=== PATIENT | male | born 1985 | race Caucasian/White ===

== ENCOUNTER 2025-01-23 19:03 | Emergency (ER) | payer OTHER ==
[~2025-01-23] VITALS: Ht 175.3 cm; Wt 77.1 kg
[2025-01-23 19:33] LABS: BASOPHILS ABSOLUTE AUTO 0.03 K/mm3 (0.00-0.23); BASOPHILS PERCENT AUTO 1 % (0-2); EOSINOPHILS PERCENT AUTO 3 % (0-6); Hematocrit 38.6 % (37.0-53.0); Hemoglobin 13.2 g/dL (13.5-17.5); IMMATURE GRAN ABSOLUTE AUTO 0.01 K/mm3 (0.00-0.10); IMMATURE GRAN PERCENT AUTO 0 % (0-1); LYMPHOCYTES ABSOLUTE AUTO 2.82 K/mm3 (0.84-5.20); LYMPHOCYTES PERCENT AUTO 43 % (21-46); MONOCYTES ABSOLUTE AUTO 0.43 K/mm3 (0.16-1.47); MONOCYTES PERCENT AUTO 7 % (4-13); Mean Corpuscular HGB 30.9 pg (26.0-34.0); Mean Corpuscular HGB Conc 34.2 g/dL (31.5-36.5); Mean Corpuscular Volume 90 fL (80-100); Mean Platelet Volume 9.4 fL (9.1-12.4); NEUTROPHILS ABSOLUTE AUTO 3.05 K/mm3 (1.96-9.15); NEUTROPHILS PERCENT AUTO 47 % (41-73); Platelet Count 247 K/mm3 (150-400); RDW Coefficient Variation 11.9 % (11.7-14.2); RDW Standard Deviation 39.3 fL (35.1-46.3); Red Blood Cell Count 4.27 M/mm3 (4.30-5.90); White Blood Cell Count 6.54 K/mm3 (4.00-11.30)
[2025-01-23 20:05] LABS: Albumin, Blood 4.4 g/dL (3.4-5.0); Albumin/Globulin Ratio 1.2 (0.8-1.8); Bilirubin, Total 0.4 mg/dL (0.1-1.0); Bun/Creatinine Ratio 10.9 (12.0-20.0); Calcium, Blood 9.6 mg/dL (8.5-10.1); Creatinine, Blood 1.01 mg/dL (0.60-1.20); Globulin, Blood 3.7 g/dL (2.2-4.0); Potassium, Blood 3.6 mmol/L (3.5-5.5); Total Protein, Blood 8.1 g/dL (6.4-8.2)
[2025-01-23 21:05] LABS: Source, Urine Clean Catch
[2025-01-23 21:09] LABS: Appearance, Urine Clear (Clear); Bilirubin, Urine Neg (Neg); Blood, Urine Neg (Neg); Glucose Qualitative, Urine Neg (Neg); Ketones, Urine Neg (Neg); Leukocyte Esterase, Urine Neg (Neg); Nitrite, Urine Neg (Neg); Protein, Urine Neg (Neg); Urobilinogen, Urine NORM (Normal)
[2025-01-23 21:46] LABS: Color, Urine Pale Yellow (P-Yellow)
[2025-01-23] MEDS ORDERED: IBU600 MG PO (22:24)
[2025-01-23] MEDS ORDERED: Ibuprofen 600 MG Tab PO ONE (22:25)
== END 2025-01-23 22:44 | disposition home or self-care (01) ==
LOC: ER 19:03
PROVIDERS: Student in an Organized Health Care Education/Training Program
DX: K40.90 Unilateral inguinal hernia, without obstruction or gangrene, not specified as recurrent (principal)
CPT/HCPCS: 76857; 80053; 81003; 83690; 85025; 99284-25; A9270

== ENCOUNTER 2025-02-26 22:24 | Emergency (ER) | payer OTHER ==
[~2025-02-26] VITALS: Ht 177.8 cm; Wt 74.8 kg
[~2025-02-26 22:24] MED LIST: IBU600 MG PO
[2025-02-26] MEDS ORDERED: Amoxicillin 875 MG Tab PO ONE (22:50)
[2025-02-26] MEDS ORDERED: RX Prepack 6 Tabs Oxycodone 5mg UD ONE (22:50)
[2025-02-26] MEDS ORDERED: Amoxicillin875 MG PO (22:53)
== END 2025-02-26 23:03 | disposition home or self-care (01) ==
LOC: ER 22:24
DX: K04.7 Periapical abscess without sinus (principal); Z88.5 Allergy status to narcotic agent; Z88.8 Allergy status to other drugs, medicaments and biological substances
CPT/HCPCS: 99282; A9270

== ENCOUNTER 2025-05-08 08:36 | Day surgery (SDC) | payer OTHER ==
[~2025-05-08] VITALS: Ht 175.3 cm; Wt 78.5 kg
[2025-05-08] VITALS (15 sets, daily range): BP systolic 92–137; BP diastolic 50–87
[~2025-05-08 08:36] MED LIST changes: +ALBU90OI INH; +Amoxicillin875 MG PO; +Lidocaine HCl 4% 5 ML SDA ONE; +MONT10T PO; +SYMBICORT 160-4.6 GM; +ZYRTEC10 M2 PO
[2025-05-08] MEDS ORDERED: CeFAZolin Sodium 2,000 MG in NS 100 ML IV SCH (08:40)
[2025-05-08] MEDS ORDERED: Ondansetron HCl 2 MG / ML 2ML Vial ONE (08:49)
[2025-05-08] MEDS ORDERED: Metoclopramide HCl 5MG / ML 2ML Vial ONE (08:49)
[2025-05-08] MEDS ORDERED: Rocuronium Bromide 10 MG/ML 5ML Injection IV ONE (08:49)
[2025-05-08] MEDS ORDERED: Dexamethasone Sod Phos 10 MG/ML 1ML VIAL ONE (08:49)
[2025-05-08] MEDS ORDERED: Sugammadex Sodium 200 MG/2ML SDV (100 MG/ML) ONE (08:50)
[2025-05-08] MEDS ORDERED: Ketorolac Tromethamine 30mg Vial ONE (08:50)
[2025-05-08] MEDS ORDERED: HYDROmorphone HCl/Pf 1MG SYR IV PRN ×2 (08:50→08:55)
[2025-05-08] MEDS ORDERED: Glycopyrrolate 0.2 MG/ML 5ML VIAL ONE (08:53)
[2025-05-08] MEDS ORDERED: FentaNYL Citrate 50 MCG/ML 2 ML Injection IV PRN ×2 (08:55)
[2025-05-08] MEDS ORDERED: Ondansetron HCl 2 MG / ML 2ML Vial IV PRN (08:55)
[2025-05-08] MEDS ORDERED: Albuterol 2.5 MG/3 ML VIAL INH PRN (08:55)
[2025-05-08] MEDS ORDERED: Prochlorperazine Edisylate 10 mg Vial IV PRN (08:55)
[2025-05-08] MEDS ORDERED: CeFAZolin Sodium 2,000 MG VIAL ONE (09:26)
[2025-05-08] MEDS ORDERED: DiphenhydrAMINE HCl 50 MG/ML 1ML Vial ONE (09:29)
[2025-05-08] MEDS ORDERED: Bupivacaine 0.5% HCl 5 MG/ML 30MLVIAL ONE (10:04)
[2025-05-08] MEDS ORDERED: Ketamine HCl 100 MG / ML 5ML Vial ONE (10:09)
[2025-05-08] MEDS ORDERED: HYDROmorphone HCl/Pf 1MG SYR ONE (10:09)
[2025-05-08] MEDS ORDERED: FentaNYL Citrate 50 MCG/ML 2 ML Injection ONE (11:50)
--- NOTE | 2025-05-08 14:00 | NUR ---
PT UP TO USE RESTROOM. STAND BY ASSIST. DENIES NUMBNESS IN LOWER EXTREMITIES. REPORT GIVEN TO SREEKANTH HARTLEY.
--- NOTE | 2025-05-08 14:51 | NUR ---
DISCHARGE NOTE PT A&OX4, BREATHING RA, PT UP TO BR C RN SBA. Discharge instructions reviewed with patient. Patient verbalizes understanding. Copy given to patient to take home. PT TOLERATING PO INTAKE. PT STATES PAIN IS TOLERABLE, NO NAUSEA. PT DRESSED INDEPENDENTLY. Dressing to procedure site clean, dry, intact with no visible drainage, swelling, erythema or bruising noted. Discharged via wheelchair to private car for ride home.
== END 2025-05-08 14:50 | disposition home or self-care (01) ==
LOC: ORSCMMR 08:36 → ORD 10:00 → ORSCMMR 10:00
DX: K40.90 Unilateral inguinal hernia, without obstruction or gangrene, not specified as recurrent (principal); J45.909 Unspecified asthma, uncomplicated; Z79.899 Other long term (current) drug therapy
CPT/HCPCS: A9270; C1781; J0690; J1100; J1171; J1200; J1885; J2003; J2405; J2704; J2765; J3010; J7120

== ENCOUNTER 2025-06-11 19:21 | Emergency (ER) | payer OTHER ==
[~2025-06-11] VITALS: Ht 175.3 cm; Wt 77.1 kg
[~2025-06-11 19:21] MED LIST changes: -Lidocaine HCl 4% 5 ML SDA ONE
[2025-06-11] MEDS ORDERED: PENVK500 PO (20:45)
== END 2025-06-11 20:47 | disposition home or self-care (01) ==
LOC: ER 19:21
DX: K04.7 Periapical abscess without sinus (principal); Z88.5 Allergy status to narcotic agent; Z79.899 Other long term (current) drug therapy; Z79.2 Long term (current) use of antibiotics
CPT/HCPCS: 99282; A9270